=== PATIENT | male | born 1985 | race Caucasian/White ===

== ENCOUNTER 2023-12-08 08:46 | Emergency (ER) | payer OTHER, SELFPAY ==
[2023-12-08] VITALS (9 sets, daily range): BP systolic 150–211; BP diastolic 96–129; PULSE 65–80; RESP 14–16; TEMP 36.4; O2SAT 98–100; BMI 37.6
--- NOTE | 2023-12-08 09:00 | ED_ITS ---
HPI - Extremity Problem General Chief complaint: Extremity Problem,Nontraumatic Stated complaint: unable to straighten L/leg, pain and diff walking Time Seen by Provider: 12/08/23 08:52 Source: patient and family Mode of arrival: Wheelchair History of Present Illness HPI Narrative: 38-year-old male with history of gout, ulcerative colitis, not currently on any medications presents by private vehicle from home for 1 day of left knee pain and swelling. Patient woke up with symptoms and has been unable to bend his knee due to the pain. Denies trauma or any other injury. Patient states that usually his right knee is swollen, but today his left knee appears larger than the right knee. Denies numbness, weakness, tingling of his lower extremities. Related Data Home Medications Medication Instructions Recorded Confirmed ibuprofen 200 mg tablet 400 mg PO Q6H PRN Pain (Scale 12/08/23 12/08/23 Score 4-6) Previous Rx's Medication Instructions Recorded ondansetron 4 mg disintegrating 4 mg PO Q8H PRN nausea and 12/08/23 tablet vomiting #30 tabs tramadol 50 mg tablet 50 mg PO Q8H PRN pain #10 tabs 12/08/23 Allergies Allergy/AdvReac Type Severity Reaction Status Date / Time tramadol Allergy Severe Agitated Verified 12/08/23 11:43 Opioids - Morphine Analogues Allergy Mild Nausea Verified 12/08/23 08:58 acetaminophen AdvReac Severe Heartburn Verified 12/08/23 11:44 Review of Systems Review of Systems Narrative: Negative except as noted above Patient History Medical History (Updated 12/08/23 @ 11:24 by Berna Ramos MD) Ulcerative colitis Social History Smoking Status: Current every day smoker Smoking Status: Current every day smoker alcohol intake frequency: 0-2 drinks per day Substance Use Type: marijuana Exam Initial Vital Signs Initial Vital Signs: Vital Signs Temperature 97.6 F 12/08/23 08:55 Pulse Rate 80 12/08/23 08:55 Respiratory Rate 14 12/08/23 08:55 Blood Pressure 211/129 H 12/08/23 08:55 Pulse Oximetry 98 12/08/23 08:55 Oxygen Delivery Method Room Air 12/08/23 08:55 Const: Awake, alert, no acute distress, nontoxic appearing Cardiac: regular rate, regular rhythm RESP: unlabored, clear bilaterally, no wheezing GI: Soft, nontender, nondistended, no rebound, no guarding MSK: Atraumatic, decreased range of motion left lower extremity due to pain, point tenderness behind left knee, sensation intact and equal Skin: Warm, Dry, intact, no rashes Neuro: AO x3, CN II-XII grossly intact, moves all extremities Course Orders Ordered: ED Orders 12/08/23 08:58 US periph venous low extrem lt Stat XR knee LT 3V Stat 12/08/23 09:05 BNP [NT-proBNP (BNP-Adult 18+)] Stat CBC Auto Diff [Complete Blood Count AUTO DIFF] Stat CK [Creatine Kinase] Stat CMP [Comprehensive Metabolic Panel] Stat Discontinued Medications Ketorolac Tromethamine (Ketorolac 30 Mg/Ml Vial) 15 mg IV NOW ONE Stop: 12/08/23 09:10 Last Admin: 12/08/23 09:16 Dose: 15 mg Documented By: NOAM Oxycodone/Acetaminophen (Oxycodone/Acetaminophen 5/325 Tablet) 1 tab PO NOW ONE Stop: 12/08/23 10:26 Last Admin: 12/08/23 10:33 Dose: 1 tab Documented By: MARIUM Vital Signs Vital signs: Vital Signs - 8 hr 12/08/23 08:55 12/08/23 09:07 12/08/23 09:08 Temperature 97.6 F Pulse Rate 80 80 Pulse Rate [Left Dorsalis Pedis] Respiratory Rate 14 Blood Pressure 211/129 H 174/103 H Pulse Oximetry 98 99 Oxygen Delivery Method Room Air 12/08/23 09:08 12/08/23 09:10 12/08/23 09:30 Temperature Pulse Rate 76 Pulse Rate [Left Dorsalis Pedis] 75 Respiratory Rate 14 Blood Pressure 153/107 H Pulse Oximetry 99 Oxygen Delivery Method Room Air 12/08/23 09:30 12/08/23 10:00 12/08/23 10:00 Temperature Pulse Rate 68 65 Pulse Rate [Left Dorsalis Pedis] Respiratory Rate 16 14 Blood Pressure 150/96 H Pulse Oximetry 98 99 Oxygen Delivery Method Room Air Room Air 12/08/23 11:35 12/08/23 11:36 12/08/23 11:37 Temperature Pulse Rate 75 67 Pulse Rate [Left Dorsalis Pedis] Respiratory Rate 14 Blood Pressure 186/114 H Pulse Oximetry 100 100 Oxygen Delivery Method Room Air MDM - Extremity (Nontraumatic) Differential Diagnosis Differential diagnosis: Likely superficial thrombophlebitis, lower extremity edema and deep vein thrombosis of lower extremity Lab Data 12/08/23 09:05 12/08/23 09:05 Labs: Lab Results 12/08/23 Range/Units 09:05 WBC 10.0 (4.5-11.0) X10^3/uL RBC 5.35 (4.5-5.9) X10^6/uL Hgb 16.2 (13.5-17.5) g/dL Hct 47.6 (41-53) % MCV 88.9 (80-100) fL MCH 30.3 (26-34) PG MCHC 34.1 (30-36) % RDW 14.4 (11.6-14.8) % Plt Count 264 (150-400) X10^3/uL Neut % (Auto) 61.5 (50-75) % Lymph % (Auto) 26.8 (25-40) % [place] % (Auto) 6.6 (3-14) % Eos % (Auto) 3.6 (2-4) % Baso % (Auto) 1.5 (0-2) % Neut # (Auto) 6200 (2092-2596) /uL Lymph # (Auto) 2700 (5953-0883) /uL [place] # (Auto) 700 (0-900) /uL Eos # (Auto) 400 (0-450) /uL Baso # (Auto) 200 H (0-100) /uL Sodium 138 (137-145) mmol/L Potassium 4.7 (3.4-5.1) mmol/L Chloride 108 H (98-107) mmol/L Carbon Dioxide 28 (22-32) mmol/L BUN 14 (9-20) mg/dL Creatinine 0.67 (0.66-1.25) mg/dL Estimated GFR > 60 (>60) mL/min BUN/Creatinine Ratio 20.9 (6-22) Glucose 90 (70-100) mg/dL Calcium 9.6 (8.4-10.2) mg/dL Total Bilirubin 0.4 (0.2-1.3) mg/dL AST 20 (17-59) IU/L ALT 20 (<50) IU/L Alkaline Phosphatase 49 (38-126) U/L Total Creatine Kinase 93 (55-170) U/L NT-Pro-B Natriuret Pep 295 H (<125) pg/mL Total Protein 6.4 (6.3-8.2) g/dL Albumin 3.6 (3.5-5.0) g/dL Globulin 2.8 (1.7-4.1) g/dL Albumin/Globulin Ratio 1.3 (1.0-2.8) Urine Dip Bedside Urine Glucose Negative Bedside Urine Bilirubin - Negative Bedside Urine Ketone - Negative Urine Specific [place] 1.025 Bedside Urine Occult Blood - Negative Bedside Urine pH 6.0 Bedside Urine Protein - Negative Bedside Urine Urobilinogen - Negative Bedside Urine Nitrite - Negative Bedside Urine Leukocytes - Negative Esterase Imaging Data Extremity x-ray #1: Radiologist's Impression: PROCEDURE: XR KNEE LT 3V INDICATIONS: pain, swelling, can't bend knee, atraumatic TECHNIQUE: 3 views of the knee were acquired. COMPARISON: None. FINDINGS: Bones: No fractures or dislocations. No suspicious bony lesions. Soft tissues: Mild joint effusion. No suspicious soft tissue calcifications. IMPRESSION: Mild effusion. No visualized acute fracture or dislocation. However, if clinical concern and/or pain persist, short interval imaging followup in 7-10 days is recommended, as occult injury cannot be definitively excluded. Dictated by: Shakira Michel M.D. on 12/08/2023 at 9:24 Approved by: Shakira Michel M.D. on 12/08/2023 at 9:25 US - DVT: Radiologist's Impression: PROCEDURE: US PERIPH VENOUS LOW EXTREM LT INDICATIONS: ATRAUMATIC PAIN BEHIND KNEE, SWELLING TECHNIQUE: Real-time imaging, as well as color and pulse Doppler interrogation, were performed of the lower extremity deep veins from the inguinal ligament to the popliteal fossa, with documentation of the visualized calf veins. COMPARISON: None. FINDINGS: The common femoral, femoral, popliteal, and the visualized calf veins are normally compressible, and free of intraluminal thrombus. Color and pulse Doppler demonstrate normal phasic intraluminal flow. There is normal augmentation response to distal compression maneuver. Lowry's cyst is present measuring 7.1 x 4.1 x 2.2 cm. IMPRESSION: No findings of lower extremity deep venous thrombosis. Approved by: Joann Ansari M.D. on 12/08/2023 at 10:17 MDM Narrative Medical decision making narrative: Atraumatic left knee pain and swelling. On exam patient's left lower extremity seems to be somewhat larger in appearance than the right lower extremity. Patient denies history of DVT or hypercoagulable disease. Compartments are soft. Patient noted to be very hypertensive on arrival, denying chest pain, shortness of breath, headache, vision changes. He states that he has had elevated blood pressure readings in the past but has not followed with primary care physician and he was not formally diagnosed with hypertension. Laboratory work reviewed, no significant electrolyte abnormalities, trace elevation in BNP. X-ray of the knee shows mild effusion without acute traumatic findings. Ultrasound of the lower extremity shows no DVT, however a large Lowry cyst is noted. Patient informed of lab and imaging findings, placed in compression bandage. He states that he was told that he has a Lowry's cyst in the past but has not seen anyone about this in quite some time. Rice instructions counseled at bedside, orthopedic referral provided. In addition extra pain medication sent to patient's pharmacy of choice as well as nausea medications since he reports stomach upset with narcotics. Counseled on the importance of following up with PCP for elevated blood pressure readings. Discharge Plan Departure Patient Disposition: Home Clinical Impression: Lowry's cyst of knee Qualifiers: Laterality: left Qualified Code(s): M71.22 - Synovial cyst of popliteal space [Lowry], left knee Instructions: DI for Lowry Cyst Activity Restrictions/Additional Instructions: Take Tylenol and ibuprofen as needed for pain, in addition a short course of pain medication has been prescribed if this does not improve your symptoms. Please follow up with Orthopedic surgery. Your blood pressure was elevated today in the emergency department. Please follow up with the primary care physician, you may need to start taking blood pressure medications if it remains elevated. Prescriptions: New tramadol 50 mg tablet 50 mg PO Q8H PRN (Reason: pain) Qty: 10 0RF ondansetron 4 mg tablet,disintegrating 4 mg PO Q8H PRN (Reason: nausea and vomiting) Qty: 30 0RF No Action ibuprofen 200 mg Tablet 400 mg PO Q6H PRN (Reason: Pain (Scale Score 4-6)) Referrals: Miscellaneous,MD Sam [Primary Care Provider] - Gregorio Graf MD [Physician] - Stand Alone Forms: Patient Portal/API, Work Release Note
[2023-12-08 09:15] LABS: Add Manual Diff / Slide Review NO; Basophils Absolute Auto 200 /uL (0-100); Basophils Percent Auto 1.5 % (0-2); Eosinophils Absolute Auto 400 /uL (0-450); Eosinophils Percent Auto 3.6 % (2-4); Hematocrit 47.6 % (41-53); Hemoglobin 16.2 g/dL (13.5-17.5); Lymphocytes Absolute Auto 2700 /uL (1100-4500); Lymphocytes Percent Auto 26.8 % (25-40); Mean Corpuscular HGB Conc 34.1 % (30-36); Mean Corpuscular Hemoglobin 30.3 PG (26-34); Mean Corpuscular Volume 88.9 fL (80-100); Monocytes Absolute Auto 700 /uL (0-900); Monocytes Percent Auto 6.6 % (3-14); Neutrophils Absolute Auto 6200 /uL (1500-7000); Neutrophils Percent Auto 61.5 % (50-75); Platelet Count 264 X10^3/uL (150-400); Red Blood Cell Count 5.35 X10^6/uL (4.5-5.9); Red Cell Distribution Width 14.4 % (11.6-14.8)
[2023-12-08] MEDS: KETOROLAC 30 MG/ML VIAL 15 MG IV (09:16)
[2023-12-08 09:27] LABS: Alanine Aminotransferase 20 IU/L (<50); Albumin 3.6 g/dL (3.5-5.0); Albumin Globulin Ratio 1.3 (1.0-2.8); Alkaline Phosphatase 49 U/L (38-126); Aspartate Aminotransferase 20 IU/L (17-59); BUN Creatinine Ratio 20.9 (6-22); Bilirubin Total 0.4 mg/dL (0.2-1.3); Blood Urea Nitrogen 14 mg/dL (9-20); Calcium 9.6 mg/dL (8.4-10.2); Carbon Dioxide 28 mmol/L (22-32); Chloride 108 mmol/L (98-107); Estimated Glomerular Filt Rate > 60 mL/min (>60); Globulin 2.8 g/dL (1.7-4.1); Glucose 90 mg/dL (70-100); HEMOLYSIS < 15 (0-50); Potassium 4.7 mmol/L (3.4-5.1); Sodium 138 mmol/L (137-145); Total Protein 6.4 g/dL (6.3-8.2)
[2023-12-08 09:28] LABS: Creatine Kinase 93 U/L (55-170)
[2023-12-08 09:36] LABS: NT-proBNP (BNP-Adult 18+) 295 pg/mL (<125)
[2023-12-08] MEDS: OXYCODONE/ACETAMINOPHEN 5/325 TABLET 1 TAB PO (10:33)
--- NOTE | 2023-12-08 11:45 | PC.NURSE ---
PT states he can not take tylenol or tramadol due to adverse side effects. added to allergy list.
== END 2023-12-08 11:55 | disposition home or self-care (01) ==
PROVIDERS: Emergency Provider Emergency Medicine; Family Provider Orthopaedic Surgery
DX: M71.22 Synovial cyst of popliteal space [Baker], left knee (principal)
CPT/HCPCS: 36415; 73562; 80053; 81003; 82550; 83880; 85025; 93971; 96374; 99284; J1885

== ENCOUNTER → 2023-12-23 09:21 | Outpatient (CLI) | payer OTHER, SELFPAY ==
--- NOTE | 2023-12-23 09:32 | DI.MRI.S_ITS ---
PROCEDURE: MR KNEE LT WO CON INDICATIONS: Sprain of other specified parts of left knee, sequ TECHNIQUE: Noncontrast sagittal PD fast spin echo and T2 fast spin echo with fat saturation, sagittal 3-D FLASH with fat saturation; coronal T1 spin echo and PD fast spin echo with fat saturation, and axial PD fast spin echo with fat saturation through the knee. COMPARISON: [facility], CR, XR KNEE LT 3V, 12/08/2023, 9:06. FINDINGS: Image quality: Excellent. Menisci: Medial meniscal extrusion. There is horizontal tear of the anterior horn, body and posterior horn of the medial meniscus. There is horizontal tear of the anterior horn and anterior root of the lateral meniscus. Mild intrasubstance degeneration in the posterior horn of the lateral meniscus.. The meniscal root ligaments appear intact. Cruciate ligaments: Question chronic partial tear versus mucoid degeneration of anterior cruciate ligament.The posterior cruciate ligament appears intact. Medial structures: The medial collateral ligament appears intact. The semimembranosus tendon insertions and meniscocapsular junction appear intact. Visualized portions of the pes anserinus tendons appear normal. No abnormal bursal fluid. Lateral structures: The lateral collateral ligament, long and short heads of the biceps femoris tendon appear intact. The popliteus tendon appears normal. Iliotibial band appears normal. Anterior structures: The quadriceps and patellar tendons appear intact. There is patellar tendinitis and quadriceps tendinitis. Patellar alignment is normal. No femoral trochlear dysplasia or ventral trochlear prominence. No edema in the infrapatellar fat pad. Bones and cartilage: No bone marrow contusions or fractures. The cartilage of the medial and lateral femorotibial compartments, as well as the patellofemoral compartment, appears normal in thickness. Joint space: There is small knee joint effusion. There is a small Lowry's cyst. Normal appearing synovial plicae are incidentally noted. There is a 1.0 x 1.5 cm ganglion cyst in the posterior superior knee joint. IMPRESSION: 1. Medial meniscal extrusion and horizontal tear of the medial meniscus as described. 2. Horizontal tear of the anterior horn and anterior root of the lateral meniscus. 3. Suspect chronic partial tear or mucoid degeneration of ACL. 4. Patellar tendinitis and quadriceps tendinitis. 5. A small Lowry's cyst. Dictated by: Stacy Pantoja M.D. on 12/23/2023 at 10:51 Approved by: Stacy Pantoja M.D. on 12/23/2023 at 12:05
== END ==
PROVIDERS: Family Provider Orthopaedic Surgery; Referring Provider Orthopaedic Surgery Adult Reconstructive Orthopaedic Surgery; Visit Provider Orthopaedic Surgery Adult Reconstructive Orthopaedic Surgery
DX: S83.242A Other tear of medial meniscus, current injury, left knee, initial encounter (principal); S83.282A Other tear of lateral meniscus, current injury, left knee, initial encounter; S83.8X2S Sprain of other specified parts of left knee, sequela; M76.52 Patellar tendinitis, left knee
CPT/HCPCS: 73721